=== PATIENT | female | born 1970 | race African-American/Black ===

== ENCOUNTER 2018-01-27 18:41 | Emergency (ER) | payer BC ==
[2018-01-27 19:01] VITALS: BP 131/96; PULSE 98; TEMP 98.2; BMI 25.8
[2018-01-27] MEDS ORDERED: DIPHTH,PERTUSS(ACELL),TET 0.5 ML DISP.SYRIN IM ONE (19:22)
[2018-01-27] MEDS ORDERED: ACETAMINOPHEN 325 MG TABLET (FP) PO ONE (19:22)
--- NOTE | 2018-01-27 19:22 | PDOC ---
History of Present Illness - General History Source: Patient Exam Limitations: No Limitations - History of Present Illness Initial Comments: 01/27/18 19:15 Patient is a 47-year-old female who presents to emergency department today for a cut to her right hand ( 3rd finger). Patient states she was trying to get the pit out of a avocado when her knife slipped. Does not remember the date of her last tetanus shot. Is able to flex and extend finger. Denies numbness and tingling, weakness to the extremity. <Lia Dawkins - Last Filed: 01/27/18 20:10> <Mikey Burk - Last Filed: 01/27/18 20:27> - General Chief Complaint: Laceration Stated Complaint: LACERATION Time Seen by Provider: 01/27/18 18:44 Past History - Travel Traveled outside of the country in the last 30 days: No Close contact w/someone who was outside of country & ill: No - Past Medical History COPD: No HTN: Yes - Surgical History Abdominal Surgery: Yes (a/p) GI Surgery: Yes (hemmoroid surgery) - Suicide/Smoking/Psychosocial Hx Smoking History: Never smoked Have you smoked in the past 12 months: No Information on smoking cessation initiated: No Hx Alcohol Use: No Drug/Substance Use Hx: No Substance Use Type: None <Lia Dawkins - Last Filed: 01/27/18 20:10> <Mikey Burk - Last Filed: 01/27/18 20:27> - Past Medical History Allergies/Adverse Reactions: Allergies Allergy/AdvReac Type Severity Reaction Status Date / Time codeine Allergy Verified 01/27/18 18:57 Home Medications: Ambulatory Orders Amlodipine Besylate 10 mg PO ASDIR 01/27/18 Hydrochlorothiazide [Hctz -] 12.5 mg PO DAILY 01/27/18 Review of Systems - Review of Systems Able to Perform ROS?: Yes Comments:: 01/27/18 19:14 CONSTITUTIONAL: Absent: fever, chills, diaphoresis, generalized weakness, malaise, loss of appetite MUSCULOSKELETAL: Absent: myalgia, arthralgia, joint swelling SKIN: Present: laceration to r hand Absent: rash, itching, pallor HEMATOLOGIC/IMMUNOLOGIC: Absent: easy bleeding, easy bruising, lymphadenopathy, frequent infections NEUROLOGIC: Absent: headache, focal weakness or paresthesias, dizziness, unsteady gait, seizure, mental status changes, bladder or bowel incontinence Is the patient limited Kittitian proficient: No <ErwinmaryannLia - Last Filed: 01/27/18 20:10> *Physical Exam - Vital Signs Last Vital Signs Temp Pulse Resp BP Pulse Ox 98.2 F 98 H 20 131/96 99 01/27/18 18:57 01/27/18 18:57 01/27/18 18:57 01/27/18 18:57 01/27/18 18:57 - Physical Exam Comments: 01/27/18 19:15 GENERAL: Well developed, well nourished. Awake and alert. No acute distress. HEENT: Normocephalic, atraumatic. PERRLA, EOMI. No conjunctival pallor. Sclera are non- icteric. Moist mucous membranes. Oropharynx is clear. MUSCULOSKELETAL Normal range of motion at all joints. No bony deformities or tenderness. No CVA tenderness. EXTREMITIES: No cyanosis. No clubbing. No edema. No calf tenderness. SKIN: 3cm lac to the R lateral finger. Superficial in a zig zag pattern. Warm and dry. Normal capillary refill. No rashes. No jaundice. NEUROLOGICAL: Alert, awake, appropriate. Cranial nerves 2-12 intact. No deficits to light touch and temperature in face, upper extremities and lower extremities. No motor deficits in the in face, upper extremities and lower extremities. Normoreflexic in the upper and lower extremities. Normal speech. Toes are down- going bilaterally. Gait is normal without ataxia. <Lia Dawkins - Last Filed: 01/27/18 20:10> - Vital Signs Last Vital Signs Temp Pulse Resp BP Pulse Ox 98.2 F 98 H 20 131/96 99 01/27/18 18:57 01/27/18 18:57 01/27/18 18:57 01/27/18 18:57 01/27/18 18:57 <Mikey Burk - Last Filed: 01/27/18 20:27> Procedures - Laceration/Wound Repair Right Lateral 3rd digit Wound Length: 2.6 to 5.0 cm Wound Explored: clean, no foreign body present Wound's Depth, Shape: superficial, flap, stellate Irrigated w/ Saline: Yes Betadine Prep: Yes Anesthesia: 1% Lidocaine Amount of Anesthetic (ccs): 5 Wound Debrided: minimal Wound Repaired With: Sutures Suture Size/Type: 5:0 Number of Sutures: 8 Layer Closure: No Sterile Dressing Applied: Yes Splint Applied: No <Mikey Burk - Last Filed: 01/27/18 20:27> ED Treatment Course - Medications Given in the ED: ED Medications Discontinued Medications Generic Name Dose Route Start Last Admin Trade Name Neha PRN Reason Stop Dose Admin Acetaminophen 650 mg 01/27/18 19:22 01/27/18 19:35 Tylenol - PO 01/27/18 19:23 650 mg ONCE ONE Administration Diphtheria/Tetanus/Acell Pertussis 0.5 ml 01/27/18 19:22 01/27/18 19:44 Boostrix - IM 01/27/18 19:23 0.5 ml .ONCE ONE Administration <Mikey Burk - Last Filed: 01/27/18 20:27> Medical Decision Making - Medical Decision Making 01/27/18 20:12 Patient is a 47-year-old female who presents emergency department for laceration to her right lateral third finger. Patient is left-hand dominant. Wound repaired with sutures. See procedure note. Procedure performed by Dr. Burk. No tendon involvement, patient able to flex and extend finger. Tetanus is updated today. X-ray shows no evidence of fracture. We'll discharge home at this time. Patient told to follow-up in 10 days to have her stitches removed. Return precautions given. Patient says all discharge instructions and all questions were answered. <Lia Dawkins - Last Filed: 01/27/18 20:10> *DC/Admit/Observation/Transfer - Discharge Dispostion Decision to Admit order: No <Lia Dawkins - Last Filed: 01/27/18 20:10> <Mikey Burk - Last Filed: 01/27/18 20:27> Diagnosis at time of Disposition: Laceration - Discharge Dispostion Disposition: HOME Condition at time of disposition: Good - Referrals Referrals: Bradley Oropeza MD [Staff Physician] - - Patient Instructions Printed Discharge Instructions: DI for Laceration Repair Additional Instructions: You had your cut fixed today with stitches. Please return in 10 days to have your stitches removed. Your tetanus shot was updated today. Avoid soaking the finger. Keep it dry when showering. Wear gloves to shower and while washing dishes Please keep the area clean and pat dry. You may use bacitracin once a day. You may take Tylenol or Motrin as needed for pain. Follow the manufactures instructions Return to the emergency department sooner if you have area of redness around the site, purulent drainage, fevers, or have any changes in your symptoms. - Post Discharge Activity Forms/Work/School Notes: Back to Work
[2018-01-27] MEDS ORDERED: ACETAMINOPHEN 325 MG TABLET (FP) ONE (19:25)
== END 2018-01-27 20:50 | disposition home or self-care (01) ==
LOC: JERFT 18:41
PROC: 0HQFXZZ Repair Right Hand Skin, External Approach (ICD-10-PCS; principal; 2018-01-27)
PROC: 3E0234Z Introduction of Serum, Toxoid and Vaccine into Muscle, Percutaneous Approach (ICD-10-PCS; 2018-01-27)
DX: S61.212A Laceration without foreign body of right middle finger without damage to nail, initial encounter (principal); W26.0XXA Contact with knife, initial encounter; Y93.G1 Activity, food preparation and clean up; Y92.030 Kitchen in apartment as the place of occurrence of the external cause; Y99.8 Other external cause status
CPT/HCPCS: 73130-TC-RT-FY; 90715; 99281-25